=== PATIENT | male | born 1960 | race Caucasian/White ===

== ENCOUNTER → 2021-01-24 | Day surgery (SDC) | payer OTHER ==
[~2021-01-24] MED LIST: ARIMIDEX1 MG PO; ASPIRIN81 MG PO; ATORVASTATIN CA20 MG PO; CENTRUM SILVER1 EAC6 PO; COQ-10100 MG PO; EPINEPHRINE HCL 1:1000 1ML 1 MG/ML AMP ONE; FISH OIL 1,2001 EACH PO; LIDOCAINE 1% W/EPINEPHRINE 20 ML VIAL ONE; LOPID600 MG PO; NOVAREL SQ; VITAMIN D3125 MCG PO; XYOSTED100 MG/0.5 SQ; ZIAC 5-6.25 MG1 EACH PO; ZYRTEC10 M3 PO
[2021-01-24 10:00] VITALS: BP 126/84
== END | disposition home or self-care (01) ==
LOC: OR 05:26
PROVIDERS: ATTEND Otolaryngology Otolaryngology/Facial Plastic Surgery
DX: J32.0 Chronic maxillary sinusitis (principal); J32.3 Chronic sphenoidal sinusitis; J34.89 Other specified disorders of nose and nasal sinuses; J34.2 Deviated nasal septum; G47.33 Obstructive sleep apnea (adult) (pediatric); I10 Essential (primary) hypertension; N20.0 Calculus of kidney; Z79.82 Long term (current) use of aspirin
CPT/HCPCS: 30520; 31267; 31288; 88300; 88305; 93005; J0171; 88304